=== PATIENT | male | born 1965 | race Caucasian/White ===

== ENCOUNTER → 2017-11-28 | Outpatient (CLI) | payer OTHER ==
--- NOTE | 2017-11-28 10:28 | MR ---
EXAMINATION TYPE: MR knee RT wo con DATE OF EXAM: 11/28/2017 COMPARISON: NONE HISTORY: Right knee pain TECHNIQUE: Multiplanar, multisequence imaging of the right knee is performed without IV contrast. FINDINGS: MEDIAL MENISCUS: There is a para meniscal cyst and findings suggestive of a complex tear involving th e posterior horn and body of the medial meniscus. LATERAL MENISCUS: Abnormal linear signal involving the posterior horn of the lateral meniscus compati ble with meniscal tear. CRUCIATE LIGAMENTS: The anterior and posterior cruciate ligaments are intact and unremarkable. COLLATERAL LIGAMENTS: Lateral collateral ligament is intact. There is extensive abnormal signal surro unding the MCL with intrasubstance abnormal signal compatible with partial tear. No evidence of throu gh thickness tear or retraction. EXTENSOR MECHANISM: Visualized quadriceps and patellar tendons are intact. EFFUSION: Trace amount of fluid in the suprapatellar bursa. 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 Patellar cartilage appears preserved. BONE MARROW SIGNAL: Abnormal signal noted in the anterior lateral femur likely reactive. No evidence of acute fracture, osteonecrosis, back space.. IMPRESSION: 1. Complex tear posterior horn and body medial meniscus with findings compatible with partial MCL tea r. 2. Linear simple tear posterior horn lateral meniscus. 3. Popliteal fossa cyst. 4. Arthritic changes in a pattern most typical of osteoarthritis with chondromalacia as discussed abo ve.
== END | disposition home or self-care (01) ==
LOC: RADMRIMAIN 08:36
PROVIDERS: ATTEND Orthopaedic Surgery
DX: S83.231A Complex tear of medial meniscus, current injury, right knee, initial encounter (principal); S83.281A Other tear of lateral meniscus, current injury, right knee, initial encounter; M94.261 Chondromalacia, right knee; M71.21 Synovial cyst of popliteal space [Baker], right knee; M17.11 Unilateral primary osteoarthritis, right knee

== ENCOUNTER → 2017-12-17 | Outpatient (CLI) | payer OTHER ==
--- NOTE | 2017-12-17 23:08 | MR ---
EXAMINATION TYPE: MR knee LT wo con DATE OF EXAM: 12/17/2017 COMPARISON: NONE HISTORY: Lt knee pain x 1 year TECHNIQUE: Multiplanar, multisequence imaging of the left knee is performed without IV contrast. FINDINGS: The anterior and posterior cruciate ligaments are intact. There is small knee joint effusion. There i s increased signal in the inferior posterior aspect of the posterior horn medial meniscus consistent with an oblique tear. Anterior horn medial meniscus appears intact. There is small oblique tear of alejandro th the anterior and posterior horns of the lateral meniscus. There is spurring at the patellofemoral joint. There are small degenerative cysts at the posterior tibial spines at the attachment of the pos terior cruciate ligament. The collateral ligaments are intact. There is no evidence of a fracture. Th ere are small degenerative cysts in the anterior aspect of the lateral femoral condyle. There is some spurring of the femoral and tibial condyles. IMPRESSION: There are tears of the medial and lateral menisci as above. Knee joint effusion. Osteoarthritic [place] es. Degenerative cysts as above. No fracture.
== END | disposition home or self-care (01) ==
LOC: RADMRIMAIN 21:09
PROVIDERS: ATTEND Orthopaedic Surgery
DX: S83.242A Other tear of medial meniscus, current injury, left knee, initial encounter (principal); S83.282A Other tear of lateral meniscus, current injury, left knee, initial encounter; M17.12 Unilateral primary osteoarthritis, left knee; M25.862 Other specified joint disorders, left knee

== ENCOUNTER → 2019-06-04 | Outpatient (CLI) | payer OTHER ==
--- NOTE | 2019-06-06 11:51 | MR ---
EXAMINATION TYPE: MR thoracic spine wo con DATE OF EXAM: 06/04/2019 COMPARISON: None HISTORY: Pain in thoracic spine Standard multiplanar, multisequence MRI departmental protocol Multiplanar, multisequence images of the thoracic spine were acquired. FINDINGS: Exam is limited due to artifact and motion. There is a slight curvature the spine with hypertrophic and degenerative disc disease at all levels. Nonspecific heterogeneous marrow signal most likely the basis of marrow redistribution. Multiple vertebral body hemangiomas noted most notably T9 and T6. Incidental note is also made of mul tilevel cervical spine degenerative disc disease and sagittal disc bulging. No abnormal signal within the spinal cord. C7-T1 no obvious disc herniation, canal stenosis or foraminal encroachment. At T1-T2 no disc herniation or canal stenosis. No foraminal encroachment. At T2-T3 there is mild right foraminal encroachment due to hypertrophic changes at the right lateral bulging. No canal stenosis or spinal cord contact. T3-T4 there is no disc herniation, canal stenosis or foraminal encroachment At T5-T6 there is minimal central disc bulging but no focal herniation, canal stenosis, or foraminal encroachment. At T6-T7 there is a focal central and right paracentral disc herniation measuring 3 mm which encroach es upon the anterior margin of the spinal cord. Neural foramina patent. At T7-T8 there is no obvious disc herniation, canal stenosis, or foraminal encroachment. Minimal cent ral disc bulging. At T8-T9 there is no disc herniation or canal stenosis. No foraminal encroachment At T9-T10 there is hypertrophic spurring anteriorly with no disc herniation or canal stenosis. No for aminal encroachment. T10-T11 there is mild central disc bulging but no canal stenosis or foraminal encroachment. At T11-T12 there is no disc herniation or canal stenosis. T12-L1 there is no disc herniation or canal stenosis. No foraminal encroachment IMPRESSION: 1. Focal central disc small herniation centrally and right paracentral T6-T7 results in compression o f thecal sac and encroaches upon the anterior margin of the spinal cord. No displacement. 2. Broad-based disc bulging or small protrusion T10-T11 but no canal stenosis, spinal cord contact or foraminal encroachment. 3. Mild central disc bulging T5-T6 with no canal stenosis or focal herniation. No spinal cord contact . 4. Mild right foraminal encroachment T2-T3 due to hypertrophic spurring and right lateral disc bulgin g.. 5. Multilevel moderate degenerative disc disease. 6. Sagittal images and localizing images demonstrate cervical spinal multilevel degenerative disc dis ease and sagittal disc bulging.
== END | disposition home or self-care (01) ==
LOC: RADMRIMAIN 20:06
PROVIDERS: ATTEND Family Medicine
DX: M51.24 Other intervertebral disc displacement, thoracic region (principal); M51.34 Other intervertebral disc degeneration, thoracic region; M53.84 Other specified dorsopathies, thoracic region
CPT/HCPCS: 72146

== ENCOUNTER 2019-07-26 08:47 | Day surgery (SDC) | payer OTHER ==
[2019-07-16 11:30] VITALS: BMI 41.0
[~2019-07-26 08:47] MED LIST: LACTATED RINGERS 1,000 ML IV SCH; LIDOCAINE 1% 20 ML VIAL (10MG/ML) FOR IV START INTRADERMA PRN; MIDAZOLAM 2 MG/2 ML VIAL IV PRN; fentaNYL (PF) 50 MCG/ML 2 ML AMP IV PRN
[2019-07-26 10:05] VITALS: RESP 16; TEMP 98
[2019-07-26] MEDS ORDERED: LIDOCAINE 1% INJ 10MG/ML (20 ML MDV) ONE (10:32)
[2019-07-26] MEDS ORDERED: PROPOFOL 10 MG/ML 20 ML VIAL IV ONE (10:32)
[2019-07-26] MEDS ORDERED: MIDAZOLAM 2 MG/2 ML VIAL ONE (10:32)
[2019-07-26] MEDS ORDERED: fentaNYL (PF) 50 MCG/ML 2 ML AMP ONE (10:32)
[2019-07-26] MEDS ORDERED: BUPIVACAINE (PF) 0.5% 30 ML VIAL SQ ONE ×2 (10:37→10:41)
[2019-07-26] MEDS ORDERED: LIDOCAINE 2% INJ 20 MG/ML SQ ONE ×2 (10:37→10:41)
--- NOTE | 2019-07-26 11:00 | OP ---
OPERATIVE REPORT DATE OF SURGERY: 07/26/2019. PREOPERATIVE DIAGNOSIS: Left carpal tunnel syndrome. POSTOPERATIVE DIAGNOSIS: Left carpal tunnel syndrome. PROCEDURE: Left carpal tunnel release. DESCRIPTION OF PROCEDURE: The patient was taken to the operative suite where a sedation was administered by the department of anesthesia. I then performed a local injection along the line of the incision with a combination of Marcaine and Xylocaine both without epinephrine. The hand was then prepped and draped in the usual manner. The arm was elevated, exsanguinated and the cuff was inflated to 250 mm of mercury. A longitudinal incision was made along the ring finger ray distal to the wrist crease. Dissection was taken through the skin and subcutaneous tissue, initially sharp through the skin and then blunt through the subcutaneous tissue to ensure protection of any potential terminal transverse branches of the palmar cutaneous nerve. The palmar fascia was then incised under direct vision longitudinally exposing the transverse carpal ligament. The transverse carpal ligament also was incised under direct vision. The dissection was then continued proximally beneath the skin under direct vision to release the distal forearm fascia. The median nerve was then reflected free of tenosynovium to ensure no adhesions. The tourniquet was then released. The wound was then irrigated and the skin was closed with a running 5-0 nylon suture. A soft bulky dressing was applied including a volar plaster splint holding the wrist in a neutral slightly extended position. The patient was then taken to the recovery room in satisfactory condition. CAT / TELLON: [id number] /
[2019-07-26 11:43] VITALS: BP 119/77; PULSE 77
--- NOTE | 2019-07-27 07:48 | OP ---
OPERATIVE REPORT SURGERY DATE: 07/26/2019 PREOPERATIVE DIAGNOSIS: Left carpal tunnel syndrome. FINAL DIAGNOSIS: Left carpal tunnel syndrome. PROCEDURE: Left carpal tunnel release. DESCRIPTION OF PROCEDURE: The patient was taken to the Operative Suite where a sedation was administered by the Department of Anesthesia. I then performed a local injection along the line of the incision with a combination of Marcaine and Xylocaine both without epinephrine. The hand was then prepped and draped in the usual manner. The arm was elevated, exsanguinated and the cuff was inflated to 250 mm of mercury. A longitudinal incision was made along the ring finger ray distal to the wrist crease. Dissection was taken through the skin and subcutaneous tissue, initially sharp through the skin and then blunt through the subcutaneous tissue to ensure protection of any potential terminal transverse branches of the palmar cutaneous nerve. The palmar fascia was then incised under direct vision longitudinally exposing the transverse carpal ligament. The transverse carpal ligament also was incised under direct vision. The dissection was then continued proximally beneath the skin under direct vision to release the distal forearm fascia. The median nerve was then reflected free of tenosynovium to ensure no adhesions. The tourniquet was then released. The wound was then irrigated and the skin was closed with a running 5-0 nylon suture. A soft bulky dressing was applied including a volar plaster splint holding the wrist in a neutral slightly extended position. The patient was then taken to the Recovery Room in satisfactory condition. CAT / IJN: [id number] /
== END 2019-07-26 11:50 | disposition home or self-care (01) ==
LOC: OR 08:47
PROVIDERS: ATTEND Orthopaedic Surgery Hand Surgery
DX: G56.03 Carpal tunnel syndrome, bilateral upper limbs (principal); M77.11 Lateral epicondylitis, right elbow; M77.12 Lateral epicondylitis, left elbow; Z87.891 Personal history of nicotine dependence; Z82.49 Family history of ischemic heart disease and other diseases of the circulatory system
CPT/HCPCS: 64721; J2001 ×2; J2250; J0690; J3010; J2704

== ENCOUNTER → 2019-08-13 | Outpatient (CLI) | payer OTHER ==
--- NOTE | 2019-08-14 11:43 | MR ---
EXAMINATION TYPE: MR cervical spine wo con DATE OF EXAM: 08/13/2019 COMPARISON: Thoracic spine MRI 06/04/2019 HISTORY: Neck Pain TECHNIQUE: Multiplanar, multisequence images of the cervical spine were acquired. C2-C3: No disc herniation or canal stenosis. Mild uncovertebral joint hypertrophy on the right. C3-C4: Degenerative disc disease and broad-based disc herniation resulting in moderate canal stenosis and encroaching upon the anterior margin the spinal cord. Uncovertebral joint hypertrophy contribute s to moderate to severe bilateral foraminal encroachment. C4-C5: Bilateral uncovertebral joint hypertrophy. No focal herniation or canal stenosis. Moderate will ateral foraminal encroachment greater on the right. C5-C6: Degenerative disc disease with uncovertebral joint hypertrophy and disc bulging capped by spur resulting in moderate to severe bilateral foraminal encroachment mild effacement of thecal sac. No f ocal herniation. C6-C7: Focal central disc broad-based herniation greater paracentrally to the right abuts the anterio r margin the spinal cord. Uncovertebral joint hypertrophy contributes to moderate foraminal encroachm ent bilaterally. C7-T1: No evidence for degenerative disc disease. No disc bulge/herniation or protrusion. No Canal stenosis. Foramina are patent bilaterally. Cervical segments are intact. There is normal alignment. Cervical spinal cord is of normal signal. Craniovertebral junction relationships are within normal limits. Sagittal disc bulging at T2-T3 as has been reported by previous MRI thoracic spine. IMPRESSION: 1. Multilevel degenerative disc disease with broad-based disc protrusion or herniation resulting in m oderate canal stenosis at C3-C4. Disc osteophyte complex abuts the anterior margin of the spinal cord . Moderate to severe bilateral foraminal encroachment. 2. Focal central broad-based disc herniation greater paracentrally the right C6-C7 also abuts the ant erior margin the spinal cord without displacement. Bilateral foraminal encroachment. 3. There is multilevel moderate to severe foraminal encroachment as discussed above with multilevel u ncovertebral joint hypertrophy. 4. Sagittal disc bulges involving the upper thoracic spine as discussed above. 5. Disc bulging capped by spur C5-C6 with mild effacement of thecal sac and moderate to severe bilate ral foraminal encroachment.
== END | disposition home or self-care (01) ==
LOC: RADMRIMAIN 21:17
PROVIDERS: ATTEND Orthopaedic Surgery Orthopaedic Surgery of the Spine
DX: M50.31 Other cervical disc degeneration, high cervical region (principal); M50.21 Other cervical disc displacement, high cervical region; M48.02 Spinal stenosis, cervical region; G56.01 Carpal tunnel syndrome, right upper limb; M25.531 Pain in right wrist; M25.532 Pain in left wrist; G56.02 Carpal tunnel syndrome, left upper limb; Z48.89 Encounter for other specified surgical aftercare; Z98.890 Other specified postprocedural states
CPT/HCPCS: 72141

== ENCOUNTER → 2019-09-09 | Outpatient (CLI) | payer OTHER ==
--- NOTE | 2019-09-10 14:48 | MR ---
EXAMINATION TYPE: MR lumbar spine wo con DATE OF EXAM: 09/09/2019 COMPARISON: None HISTORY: Low back pain CONTRAST: 0 mL intravenous Gadavist. TECHNIQUE: Multiplanar, multisequence images of the lumbar spine were acquired. FINDINGS: L5-S1: There is a central protrusion with anterior thecal sac contact. No AP spinal canal stenosis is present. Some mild bilateral exiting nerve root contact may be present. There is moderate left and m ild to moderate right foraminal narrowing. Mild facet hypertrophy is present. L4-L5: No significant disc bulge or disc herniation. No spinal canal stenosis. No foraminal stenosi s. Facet hypertrophy is present.. L3-L4: No significant disc bulge or disc herniation. No spinal canal stenosis. No foraminal stenosi s. L2-L3: No significant disc bulge or disc herniation. No spinal canal stenosis. No foraminal stenosi s. . L1-L2: No significant disc bulge or disc herniation. No spinal canal stenosis. No foraminal stenosi s. . T12-L1: No significant disc bulge or disc herniation. No spinal canal stenosis. No foraminal stenos is. . Distal spinal cord terminates at the L1 level. IMPRESSION: 1. Central disc bulge L5-S1 has anterior thecal sac contact. Some minimal bilateral S1 nerve root con tact may be present. Correlate with the radicular symptoms. 2. Facet degenerative changes L4-5 L5-S1. There is some moderate foraminal narrowing L5-S1 bilaterall y greater on the left
== END | disposition home or self-care (01) ==
LOC: RADMRIMAIN 12:59
PROVIDERS: ATTEND Orthopaedic Surgery Orthopaedic Surgery of the Spine
DX: Z48.89 Encounter for other specified surgical aftercare (principal); M51.26 Other intervertebral disc displacement, lumbar region; M47.816 Spondylosis without myelopathy or radiculopathy, lumbar region; G56.03 Carpal tunnel syndrome, bilateral upper limbs; M48.061 Spinal stenosis, lumbar region without neurogenic claudication; M48.07 Spinal stenosis, lumbosacral region
CPT/HCPCS: 72148

== ENCOUNTER 2019-10-05 10:29 | Day surgery (SDC) | payer OTHER ==
[2019-10-01 09:50] VITALS: BMI 39.5
[~2019-10-05 10:29] MED LIST changes: +DEXAMETHASONE SOD PHOSPHATE 10 MG/ML 1 ML VIAL IV ONE; +HYDROmorphone 0.5 MG/0.5 ML SYRINGE IVP PRN; -LIDOCAINE 1% 20 ML VIAL (10MG/ML) FOR IV START INTRADERMA PRN; +ONDANSETRON 4 MG/2 ML VIAL IVP ONE; +Pre Op ABX Message 1 EACH MISC MISCELLANE ONE; +SCOPOLAMINE 1.5MG/72HR PATCH TRANSDERM ONE; -fentaNYL (PF) 50 MCG/ML 2 ML AMP IV PRN
[2019-10-05 10:47] VITALS: RESP 16; TEMP 98.1
[2019-10-05] MEDS ORDERED: LIDOCAINE 1% (10MG/ML) FOR IV START INTRADERMA ONE ×2 (11:03→11:11)
[2019-10-05] MEDS ORDERED: LIDOCAINE 1% INJ 10MG/ML (20 ML MDV) ONE (11:27)
[2019-10-05] MEDS ORDERED: fentaNYL (PF) 50 MCG/ML 2 ML AMP ONE (11:27)
[2019-10-05] MEDS ORDERED: MIDAZOLAM 2 MG/2 ML VIAL ONE (11:27)
[2019-10-05] MEDS ORDERED: PROPOFOL 10 MG/ML 20 ML VIAL IV ONE (11:27)
[2019-10-05] MEDS ORDERED: KETAMINE 10 MG/ML 20 ML VIAL ONE (11:27)
[2019-10-05] MEDS ORDERED: BUPIVACAINE (PF) 0.5% 30 ML VIAL SQ ONE (11:29)
[2019-10-05] MEDS ORDERED: LIDOCAINE 2% INJ 20 MG/ML SQ ONE (11:29)
[2019-10-05 12:27] VITALS: BP 124/77; PULSE 76
--- NOTE | 2019-10-05 21:54 | OP ---
OPERATIVE REPORT SURGICAL DATE: 10/05/2019 PREOPERATIVE DIAGNOSIS: Right carpal tunnel syndrome. POSTOPERATIVE DIAGNOSIS: Right carpal tunnel syndrome. SURGEON: Dr. Len Medina DESCRIPTION OF PROCEDURE: The patient was taken to the Operative Suite where a sedation was administered by the Department of Anesthesia. I then performed a local injection along the line of the incision with a combination of Marcaine and Xylocaine both without epinephrine. The hand was then prepped and draped in the usual manner. The arm was elevated, exsanguinated and the cuff was inflated to 250 mm of mercury. A longitudinal incision was made along the ring finger ray distal to the wrist crease. Dissection was taken through the skin and subcutaneous tissue, initially sharp through the skin and then blunt through the subcutaneous tissue to ensure protection of any potential terminal transverse branches of the palmar cutaneous nerve. The palmar fascia was then incised under direct vision longitudinally exposing the transverse carpal ligament. The transverse carpal ligament also was incised under direct vision. The dissection was then continued proximally beneath the skin under direct vision to release the distal forearm fascia. The median nerve was then reflected free of tenosynovium to ensure no adhesions. The tourniquet was then released. The wound was then irrigated and the skin was closed with a running 5-0 nylon suture. A soft bulky dressing was applied including a volar plaster splint holding the wrist in a neutral slightly extended position. The patient was then taken to the Recovery Room in satisfactory condition. [id number] / IJN: [id number] /
== END 2019-10-05 12:49 | disposition home or self-care (01) ==
LOC: OR 10:29
PROVIDERS: ATTEND Orthopaedic Surgery Hand Surgery
DX: G56.01 Carpal tunnel syndrome, right upper limb (principal); M77.11 Lateral epicondylitis, right elbow; M77.12 Lateral epicondylitis, left elbow; E66.9 Obesity, unspecified; Z79.1 Long term (current) use of non-steroidal anti-inflammatories (NSAID); Z87.891 Personal history of nicotine dependence; Z68.41 Body mass index [BMI] 40.0-44.9, adult; Z98.890 Other specified postprocedural states; Z82.49 Family history of ischemic heart disease and other diseases of the circulatory system
CPT/HCPCS: 64721; J2001 ×2; J2250; J1100; J2405; J3010; J2704